=== PATIENT | male | born 1940 | race Caucasian/White ===

== ENCOUNTER → 2018-07-04 11:47 | Outpatient (CLI) | payer MEDICARE, OTHER, SELFPAY ==
--- NOTE | 2018-07-04 | DI.MRI.S_ITS ---
PROCEDURE: MR KNEE RT WO CON INDICATIONS: OSTEOARTHRITIS OF RIGHT KNEE TECHNIQUE: Noncontrast sagittal PD fast spin echo and T2 fast spin echo with fat saturation, sagittal 3-D FLASH with fat saturation; coronal T1 spin echo and PD fast spin echo with fat saturation, and axial PD fast spin echo with fat saturation through the knee. COMPARISON: [facility] [place], CR, XR KNEE ARTHRITIC SERIES BI, 11/20/2017, 10:48. FINDINGS: Image quality: Excellent. Menisci: Complex circumferential macerated appearing tear of the medial meniscus involving anterior horn posterior horn and body. There is complete extrusion of the medial meniscal body. Mild frayed appearance of the free margin of the body of the lateral meniscus Cruciate ligaments: The anterior cruciate ligament is not well seen and presumably ruptured. This may be chronic in nature. Posterior cruciate ligament appears intact. Medial structures: The medial collateral ligament appears intact. The posterior oblique ligament, semimembranosus tendon insertions, oblique popliteal ligament, and meniscocapsular junction appear intact. Visualized portions of the pes anserinus tendons appear normal. No abnormal bursal fluid. Lateral structures: Thickening and intrasubstance signal change of the proximal lateral collateral ligament, which is age-indeterminate. The long and short heads of the biceps femoris tendon appear intact. The popliteus tendon appears normal; the popliteofibular ligament appears intact. The posterosuperior and anteroinferior popliteomeniscal fascicles appear intact. The arcuate and fabellofibular ligaments appear intact, on either side of the lateral inferior geniculate artery. Iliotibial band appears normal. Anterior structures: The quadriceps and patellar tendons appear intact. Mild superficial infrapatellar subcutaneous edema. Patellar alignment is normal. No femoral trochlear dysplasia or ventral trochlear prominence. No edema in the infrapatellar fat pad. Bones and cartilage: No bone marrow contusions or fractures. Within the medial compartment, there is full-thickness femoral-tibial articular cartilage loss. Within the lateral compartment, diffuse surface fraying and partial-thickness loss of the central weightbearing femoral and tibial articular cartilage. Within the patellofemoral compartment, mild surface fraying of the cartilage overlying the median patellar ridge. Femoral trochlear cartilage appears grossly intact. Joint space: Moderate joint effusion. There is a large Quinn's cyst measuring 7.6 cm in a cephalocaudad dimension. IMPRESSION: Rupture of the anterior cruciate ligament although this could be a chronic finding. Please correlate clinically. Complex circumferential macerated tear of the medial meniscus with complete extrusion. Fraying of the free margin of the body lateral meniscus. Please correlate with exam findings. Moderate joint effusion. Large Quinn's cyst. Tricompartmental degenerative joint disease as above. Dictated by: Gee Montez M.D. on 07/04/2018 at 14:45 Approved by: Gee Montez M.D. on 07/04/2018 at 14:53
== END ==
PROVIDERS: Visit Provider Orthopaedic Surgery
DX: S83.511A Sprain of anterior cruciate ligament of right knee, initial encounter (principal); S83.231A Complex tear of medial meniscus, current injury, right knee, initial encounter; M17.11 Unilateral primary osteoarthritis, right knee; M25.461 Effusion, right knee; M71.21 Synovial cyst of popliteal space [Baker], right knee
CPT/HCPCS: 73721

== ENCOUNTER → 2020-12-21 12:23 | Outpatient (CLI) | payer MEDICARE, OTHER, SELFPAY ==
[2020-12-21 15:25] LABS: Prostate Specific Antigen 1.84 ng/mL (0.10-4.00)
== END ==
PROVIDERS: Referring Provider Specialist; Visit Provider Specialist
DX: N40.1 Benign prostatic hyperplasia with lower urinary tract symptoms (principal); N13.8 Other obstructive and reflux uropathy
CPT/HCPCS: 36415; 84153